=== PATIENT | female | born 1995 | race African-American/Black ===

== ENCOUNTER 2020-11-12 06:36 | Emergency (ER) | payer OTHER ==
[2020-11-12 07:47] VITALS: TEMP 98.3; BMI 26.6
[2020-11-12 08:40] LABS: BASO % 0.6 % (0-2.0); EOS % 1.3 % (0-4.5); HEMATOCRIT 33.9 % (32.4-45.2); HEMOGLOBIN 11.1 GM/dL (10.7-15.3); MCH 28.5 pg (25.7-33.7); MCHC 32.8 g/dl (32.0-36.0); MEAN CELL VOLUME 86.8 fl (80-96); MEAN PLT VOLUME 9.2 fl (7.5-11.1); MONO % 7.2 % (3.8-10.2); NEUT % 66.9 % (42.8-82.8); PLATELET COUNT 184 10^3/uL (134-434); RDW 12.6 % (11.6-15.6); WHITE BLOOD COUNT 6.3 K/mm3 (4.0-10.0)
[2020-11-12 08:43] LABS: EPI CELLS >36 /uL (0-25.1); HYALINE CASTS 3 /uL (0-3.1); PH,URINE 6.5 (5.0-8.0); URINE APPEARANCE CLEAR; URINE BACTERIA 725 /uL (0-1359); URINE BILIRUBIN NEGATIVE (NEGATIVE); URINE COLOR YELLOW; URINE GLUCOSE (UA) NEGATIVE (NEGATIVE); URINE KETONE NEGATIVE (NEGATIVE); URINE LEUK ESTERASE TRACE (NEGATIVE); URINE NITRITE NEGATIVE (NEGATIVE); URINE PROTEIN TRACE (NEGATIVE); URINE RBC 7 /uL (0-23.9); URINE WBC 39 /uL (0-25.8)
[2020-11-12 08:51] LABS: INR 0.96 (0.83-1.09); PROTHROMBIN TIME (PATIENT) 11.8 SEC (9.7-13.0)
[2020-11-12 08:54] LABS: ACTIVATED PTT 28.9 SECONDS (25.2-36.5)
[2020-11-12 08:57] LABS: CALCIUM 8.8 mg/dL (8.5-10.1)
[2020-11-12 08:58] LABS: ALBUMIN 3.4 g/dl (3.4-5.0); BLOOD UREA NITROGEN 10.8 mg/dL (7-18)
[2020-11-12 09:01] LABS: CREATININE 0.7 mg/dL (0.55-1.3)
[2020-11-12 09:03] LABS: BILIRUBIN,TOTAL 0.3 mg/dL (0.2-1); TOT PROT 7.2 g/dl (6.4-8.2)
[2020-11-12 11:08] VITALS: BP 128/54; PULSE 85
== END 2020-11-12 11:00 | disposition home or self-care (01) ==
LOC: JER 06:36
DX: O20.0 Threatened abortion (principal); O26.851 Spotting complicating pregnancy, first trimester; Z3A.08 8 weeks gestation of pregnancy
CPT/HCPCS: 36415; 76817-TC; 80053; 81003; 84702; 85025; 85610; 85730; 86850; 86900; 86901; 87086; 99284-25

== ENCOUNTER 2021-03-17 10:16 | Emergency (ER) | payer OTHER ==
[2021-03-17 10:31] VITALS: BMI 28.4
[2021-03-17] MEDS ORDERED: DEXTROSE 5%-LACTATED RINGERS 1,000 ML IV SCH ×2 (11:00→13:00)
[2021-03-17 13:30] LABS: ALBUMIN 2.6 g/dl (3.4-5.0); CALCIUM 7.9 mg/dL (8.5-10.1)
[2021-03-17 13:31] LABS: BLOOD UREA NITROGEN 3.6 mg/dL (7-18)
[2021-03-17 13:33] LABS: BASO % 0.4 % (0-2.0); CREATININE 0.6 mg/dL (0.55-1.3); EOS % 0.1 % (0-4.5); HEMATOCRIT 33.4 % (32.4-45.2); HEMOGLOBIN 11.3 GM/dL (10.7-15.3); LYMPH % 21.9 % (8-40); MCHC 33.7 g/dl (32.0-36.0); MEAN CELL VOLUME 88.8 fl (80-96); MEAN PLT VOLUME 9.5 fl (7.5-11.1); MONO % 15.3 % (3.8-10.2); NEUT % 62.3 % (42.8-82.8); PLATELET COUNT 159 10^3/uL (134-434); RBC 3.76 M/mm3 (3.60-5.2); RDW 13.4 % (11.6-15.6); WHITE BLOOD COUNT 4.3 K/mm3 (4.0-10.0)
[2021-03-17 13:35] LABS: BILIRUBIN,TOTAL 0.9 mg/dL (0.2-1); TOT PROT 6.7 g/dl (6.4-8.2)
[2021-03-17 14:41] LABS: EPI CELLS >36 /uL (0-25.1); HYALINE CASTS 9 /uL (0-3.1); URINE APPEARANCE CLOUDY; URINE BILIRUBIN 2+ (NEGATIVE); URINE COLOR DK YELLOW; URINE GLUCOSE (UA) NEGATIVE (NEGATIVE); URINE KETONE 1+ (NEGATIVE); URINE LEUK ESTERASE 2+ (NEGATIVE); URINE NITRITE POSITIVE (NEGATIVE); URINE PROTEIN 1+ (NEGATIVE); URINE UROBILINOGEN >=8.0 E.U./dl mg/dL (0.2-1.0); URINE WBC 202 /uL (0-25.8)
[2021-03-17 15:58] VITALS: BP 109/73; PULSE 99; TEMP 98.4
[2021-03-17 22:17] LABS: URINE BACTERIA 622 /uL (0-1359); URINE RBC 45 /uL (0-23.9)
== END 2021-03-17 16:05 | disposition home or self-care (01) ==
LOC: JER 10:16
PROC: 3E033GC Introduction of Other Therapeutic Substance into Peripheral Vein, Percutaneous Approach (ICD-10-PCS; principal; 2021-03-17)
PROC: 3E033GC Introduction of Other Therapeutic Substance into Peripheral Vein, Percutaneous Approach (ICD-10-PCS; 2021-03-17)
DX: O26.812 Pregnancy related exhaustion and fatigue, second trimester (principal); Z3A.25 25 weeks gestation of pregnancy
CPT/HCPCS: 36415; 80053; 81003; 82436; 84133; 84300; 85025; 99284-25

== ENCOUNTER 2021-05-31 17:50 | Inpatient (IN) | payer OTHER ==
[~2021-05-31 17:50] MED LIST: AMPICILLIN - 1 GM in SODIUM CHLORIDE 100 ML IVPB SCH
[2021-05-31] MEDS ORDERED: AMPICILLIN - 2 GM in SODIUM CHLORIDE 100 ML IVPB ONE (20:00)
[2021-05-31] MEDS ORDERED: AMPICILLIN SODIUM 2 GM VIAL ONE (20:02)
[2021-05-31] MEDS: ELECTROLYTE-148 SOLN 1,000 ML IV SCH (20:25)
[2021-05-31 20:42] LABS: BASO % 0.3 % (0-2.0); EOS % 0.5 % (0-4.5); HEMATOCRIT 30.8 % (32.4-45.2); HEMOGLOBIN 10.3 GM/dL (10.7-15.3); MCH 29.3 pg (25.7-33.7); MCHC 33.4 g/dl (32.0-36.0); MEAN CELL VOLUME 87.7 fl (80-96); MEAN PLT VOLUME 10.7 fl (7.5-11.1); MONO % 10.5 % (3.8-10.2); NEUT % 72.7 % (42.8-82.8); PLATELET COUNT 161 10^3/uL (134-434); RBC 3.51 M/mm3 (3.60-5.2); RDW 13.5 % (11.6-15.6); WHITE BLOOD COUNT 10.2 K/mm3 (4.0-10.0)
[2021-05-31 20:48] VITALS: BMI 28.6
[2021-05-31 20:51] LABS: CALCIUM 8.4 mg/dL (8.5-10.1)
[2021-05-31 20:52] LABS: BLOOD UREA NITROGEN 8.6 mg/dL (7-18)
[2021-05-31 20:54] LABS: INR 0.97 (0.83-1.09); PROTHROMBIN TIME (PATIENT) 11.1 SEC (9.7-13.0)
[2021-05-31 20:55] LABS: CREATININE 0.6 mg/dL (0.55-1.3)
[2021-05-31 20:57] LABS: ACTIVATED PTT 26.2 SECONDS (25.2-36.5)
[2021-05-31] MEDS ORDERED: BUTORPHANOL TARTRATE 1 MG/ML VIAL IVPB ONE (23:40)
[2021-05-31] MEDS ORDERED: PROMETHAZINE HCL 25 MG/1 ML VIAL IVPB ONE (23:40)
[2021-05-31] MEDS ORDERED: PROMETHAZINE HCL 25 MG/1 ML VIAL ONE (23:43)
[2021-05-31] MEDS ORDERED: BUTORPHANOL TARTRATE 2 MG/ML VIAL ONE (23:43)
[2021-06-01] MEDS ORDERED: AMPICILLIN SODIUM 1 GM VIAL ONE ×3 (00:09→08:41)
[2021-06-01] MEDS: AMPICILLIN - 1 GM in SODIUM CHLORIDE 100 ML IVPB SCH ×5 (00:14→18:56)
[2021-06-01] MEDS ORDERED: OXYTOCIN 30 UNITS in 0.9% NS 30 UNIT/500 ML INFUS.BAG IVPB SCH (02:15)
[2021-06-01] MEDS ORDERED: OXYTOCIN 30 UNITS in 0.9% NS 30 UNIT/500 ML INFUS.BAG IVPB ONE (02:20)
[2021-06-01] MEDS: ELECTROLYTE-148 SOLN 1,000 ML IV SCH ×2 (04:30→18:55)
[2021-06-01] MEDS ORDERED: OXYTOCIN 20 UNITS in 0.9% NS 20 UNIT/1,000 ML INFUS.BAG IV ONE (06:15)
[2021-06-01] MEDS ORDERED: FENTANYL/BUPIVACAINE/NS/PF - PCEA - 50 ML DISP.SYRIN EP ONE (07:59)
[2021-06-01] MEDS ORDERED: BUPIVACAINE HCL/PF 0.25% (2.5MG/ML) 10 ML VIAL ONE (08:14)
[2021-06-01] MEDS ORDERED: NALOXONE HCL 0.4 MG/ML VIAL IVPUSH PRN (08:34)
[2021-06-01] MEDS ORDERED: FENTANYL/BUPIVACAINE/NS/PF - PCEA - 50 ML DISP.SYRIN EP SCH (08:45)
[2021-06-01] MEDS ORDERED: ACETAMINOPHEN 325 MG TABLET (FP) PO PRN (11:32)
[2021-06-01] MEDS ORDERED: METHYLERGONOVINE MALEATE 0.2 MG/1 ML AMP IM PRN (11:32)
[2021-06-01] MEDS ORDERED: BENZOCAINE 28 GM HEMORRHOIDAL OINTMENT TP PRN (11:32)
[2021-06-01] MEDS ORDERED: BISACODYL 10 MG SUPP.RECT RC PRN (11:32)
[2021-06-01] MEDS ORDERED: BENZOCAINE 20% 57 GM BOTTLE TP PRN (11:32)
[2021-06-01] MEDS ORDERED: WITCH HAZEL 50% (TUCKS) 40 PAD/JAR PAD TP PRN (11:32)
[2021-06-01] MEDS ORDERED: OXYTOCIN 20 UNITS in 0.9% NS 20 UNIT/1,000 ML INFUS.BAG IV SCH (11:45)
[2021-06-01] MEDS: FENTANYL/BUPIVACAINE/NS/PF - PCEA - 50 ML DISP.SYRIN EP SCH (12:31)
[2021-06-02] MEDS: IBUPROFEN 600 MG TABLET (FP) PO PRN (05:47)
[2021-06-02 08:45] LABS: BASO % 0.2 % (0-2.0); EOS % 0.2 % (0-4.5); HEMATOCRIT 31.2 % (32.4-45.2); HEMOGLOBIN 10.3 GM/dL (10.7-15.3); MCH 29.3 pg (25.7-33.7); MCHC 32.9 g/dl (32.0-36.0); MEAN CELL VOLUME 88.9 fl (80-96); MEAN PLT VOLUME 10.7 fl (7.5-11.1); MONO % 7.2 % (3.8-10.2); NEUT % 81.4 % (42.8-82.8); PLATELET COUNT 158 10^3/uL (134-434); RBC 3.51 M/mm3 (3.60-5.2); RDW 13.6 % (11.6-15.6); WHITE BLOOD COUNT 15.5 K/mm3 (4.0-10.0)
[2021-06-02] MEDS: PRENATAL VITAMINS W/ FOLIC ACID TABLET (FP) PO SCH (10:20)
[2021-06-02] MEDS: FENTANYL/BUPIVACAINE/NS/PF - PCEA - 50 ML DISP.SYRIN EP SCH (19:51)
[2021-06-02] MEDS ORDERED: SENNOSIDES/DOCUSATE COMBO (SENNA PLUS) TABLET (UD) PO PRN (22:00)
[2021-06-03] MEDS: IBUPROFEN 600 MG TABLET (FP) PO PRN (02:00)
[2021-06-03 08:51] VITALS: BP 104/67; PULSE 71; TEMP 97.9
[2021-06-03] MEDS: PRENATAL VITAMINS W/ FOLIC ACID TABLET (FP) PO SCH (09:24)
== END 2021-06-03 14:50 | disposition home or self-care (01) | DRG 560 ==
LOC: JDEL 17:50 → JLDR 19:03 → J3W 06-01 13:25
PROVIDERS: ADMIT Obstetrics & Gynecology; ATTEND Obstetrics & Gynecology
PROC: 0HQ9XZZ Repair Perineum Skin, External Approach (ICD-10-PCS; principal; 2021-06-01)
PROC: 10E0XZZ Delivery of Products of Conception, External Approach (ICD-10-PCS; 2021-06-01)
DX: O70.0 First degree perineal laceration during delivery (principal); Z3A.37 37 weeks gestation of pregnancy; Z37.0 Single live birth
CPT/HCPCS: 36415; 59409; 80048; 85025; 85610; 85730; 86780; 86850; 86900; 86901; C9803; U0003; U0005